=== PATIENT | female | born 1960 | race Caucasian/White ===

== ENCOUNTER 2020-12-16 19:50 | Emergency (ER) | payer BC, SELFPAY ==
[2020-12-16 19:58] VITALS: BP 180/90; PULSE 54; RESP 14; TEMP 36.9; O2SAT 100
--- NOTE | 2020-12-16 20:30 | ED.SKABFB ---
HPI - Skin/Abscess/Foreign Bdy General Chief complaint: Skin/Abscess/Foreign Body Stated complaint: sting on right foot Time Seen by Provider: 12/16/20 20:31 Source: patient and RN notes reviewed Mode of arrival: ambulatory Limitations: no limitations History of Present Illness HPI narrative: 60-year-old female presents with concern for a sting to the right foot. Reports she was stung last night while walking on the grass, is not sure what stung her. Reports some redness near the toes last night. Reports today redness spread to the foot and the foot became swollen. Reports later today she noticed a fluid-filled blister at the top of her right foot that got larger quickly and then a second fluid-filled blister appeared. She reports the foot feels tight, swollen, itchy, tender. She denies fever, body aches. Denies swollen lips, swollen tongue, trouble breathing. Reports she has been putting honey on the area to relieve the swelling. MD complaint: insect bite/sting Related Data Home Medications Medication Instructions Recorded Confirmed atorvastatin 10 mg PO DAILY 12/16/20 12/16/20 Allergies Allergy/AdvReac Type Severity Reaction Status Date / Time SULFA Allergy Unknown RASH Uncoded 12/16/20 20:11 Review of Systems Review of Systems: CONSTITUTIONAL: Denies malaise, chills, sweats, or fever. ENT: Denies polyps, swollen tongue CARDIOVASCULAR: Denies chest pain, palpitations, or edema. RESPIRATORY: Denies cough or dyspnea. SKIN: Reports red, swollen, tender, itchy foot. Reports a fluid-filled blister on the dorsal aspect of the foot MUSCULOSKELETAL: Denies myalgia. NEUROLOGIC: Denies numbness, weakness All systems reviewed & are unremarkable except as noted in HPI and below [facility] Family History Family History (Updated 10/24/15 @ 23:19 by DOCTOR UNKNOWN) Grandparent Family history of malignant neoplasm of breast Family history of malignant neoplasm of ovary Mother Family history of malignant neoplasm of breast in first degree relative Sibling Family history of malignant neoplasm of breast in first degree relative Social History Social History Second hand tobacco smoke exposure: No Smoking end date: 03/28/81 Alcohol intake: current Comments At time of signature, agree with nursing past medical, surgical, social and family history. There is no relevant family history pertinent to the presenting complaint Exam Narrative: GENERAL: Well-appearing, well-nourished, and in no acute distress. HEAD: Normocephalic, atraumatic. EYES: PERRLA, conjunctivae clear, and EOMI. ENT: Mucous membranes moist. NECK: Supple. No lymphadenopathy CHEST: Clear to auscultation. No respiratory distress. HEART: Regular rate and rhythm. SKIN: Warm, dry. Dorsal right foot and digits erythematous, warm, slightly indurated extending into the ankle. 3 cm in diameter yellow fluid-filled blister noted below digits 3 and 4 to the dorsal aspect of the foot a 1 cm fluid-filled blister noted to the third digit of the foot with copious drainage and an open area between the digits. NEURO: Alert and oriented x3. PSYCH: Normal mood and affect Course Course Emergency Course: Patient is aware of diagnosis, understands and agrees to treatment plan. Anticipatory guidance given. Patient agrees to follow-up as directed and is aware of reasons to seek care at the emergency department. Portions of this record may have been created with voice recognition software Vital Signs Vital signs: Vital Signs Temperature 98.5 F 12/16/20 19:58 Pulse Rate 54 L 12/16/20 19:58 Respiratory Rate 14 12/16/20 19:58 Blood Pressure 180/90 H 12/16/20 19:58 Pulse Oximetry 100 12/16/20 19:58 Temperature 98.5 F 12/16/20 19:58 Pulse Rate 54 L 12/16/20 19:58 Respiratory Rate 14 12/16/20 19:58 Blood Pressure 180/90 H 12/16/20 19:58 Pulse Oximetry 100 12/16/20 19:58 Reviewed. Patient has been instructed to follow up with her prima
== END 2020-12-16 20:44 | disposition home or self-care (01) ==
PROVIDERS: Emergency Provider Nurse Practitioner; PCP Family Medicine
DX: S90.821A Blister (nonthermal), right foot, initial encounter (principal); W57.XXXA Bitten or stung by nonvenomous insect and other nonvenomous arthropods, initial encounter; S90.861A Insect bite (nonvenomous), right foot, initial encounter; E78.00 Pure hypercholesterolemia, unspecified; Z85.828 Personal history of other malignant neoplasm of skin
CPT/HCPCS: 99203; G0463